=== PATIENT | female | born 1960 | race Caucasian/White ===

== ENCOUNTER 2024-07-07 15:10 | Emergency (ER) | payer MEDICARE ==
[~2024-07-07] VITALS: Ht 154.9 cm; Wt 77.6 kg
[2024-07-07] MEDS ORDERED: WEGOVY0.25 MG/0. SUB-Q (15:33)
[2024-07-07] MEDS ORDERED: LIPITOR40 MG PO (15:34)
[2024-07-07] MEDS ORDERED: ZOLOFT50 MG PO (15:34)
[2024-07-07] MEDS ORDERED: PLAVIX75 MG PO (15:34)
[2024-07-07] MEDS ORDERED: LISINOPRIL20 MG PO (15:35)
[2024-07-07 15:38] LABS: BILIRUBIN, URINE POSITIVE (negative); BLOOD/HGB, URINE LARGE (Negative); KETONE, URINE TRACE (Negative); LEUK ESTERASE, URINE TRACE (negative); NITRITE, URINE POSITIVE (negative); PH, URINE 5.5 (5-7)
[2024-07-07 15:43] LABS: RED BLOOD CELLS, URINE >50 /hpf (0-5)
[2024-07-07 15:46] LABS: CRYSTALS, URINE NONE SEEN (0-1+); WHITE BLOOD CELLS, URINE 41-50 /HPF (0-5)
[2024-07-07 15:47] LABS: BACTERIA, URINE 1+ /hpf (negative); CASTS, URINE NONE SEEN \\lpf; COLLECTION TYPE, URINE CLEAN CATCH; REFLEX CULTURE, URINE Yes (No)
[2024-07-07] MEDS ORDERED: PHENAZOPYRIDINE HCL 95 MG TAB PO ONE (16:00)
[2024-07-07] MEDS ORDERED: CEFDINIR 300 MG CAP PO ONE (16:15)
[2024-07-07] MEDS ORDERED: CEFDINIR300 MG PO (16:28)
[2024-07-07] MEDS ORDERED: PYRIDIUM200 MG PO (16:28)
[2024-07-07 16:37] VITALS: BP 125/77
== END 2024-07-07 16:39 | disposition home or self-care (01) ==
LOC: ED 15:10
PROVIDERS: Emergency Medicine
DX: N39.0 Urinary tract infection, site not specified (principal); I10 Essential (primary) hypertension; I25.2 Old myocardial infarction; Z87.442 Personal history of urinary calculi; Z88.6 Allergy status to analgesic agent; Z79.01 Long term (current) use of anticoagulants; Z79.899 Other long term (current) drug therapy
CPT/HCPCS: 81001; 87088; 87186; 99283